=== PATIENT | female | born 1960 | race Caucasian/White ===

== ENCOUNTER 2017-03-25 05:19 | Emergency (ER) | payer OTHER, SELFPAY ==
[2017-03-25 05:21] VITALS: BP 122/68; PULSE 69; RESP 16; TEMP 36.4; O2SAT 98; BMI 34.0
--- NOTE | 2017-03-25 05:36 | ED.VISSUMM ---
- ER Visit Summary Date of Service: 03/25/17 Chief Complaint: Back pain History of Present Illness: The patient is a 56 F with severe right low back pain radiating into her right lower extremity. Does not go below the knee but occasionally feels some tingling in her toes. Pain started about 2 days ago, she had been doing a lot of repetitive lifting emptying a cooler involving lots of boxes, she felt a twinge at that point but it was not severe and she kept working. As that day and yesterday went on, the pain became more prominent, she found herself having a hard time getting out of a seated position because of pain. She denies any weakness, no bowel or bladder dysfunction, however tonight she was having too much pain and was not able to get up she called EMS to bring her to the hospital. She has had this happen before with these exact same symptoms in the same distribution. Last time she took some medication was some generic Tylenol yesterday. No abdominal pain, presyncope, direct trauma to her back. Physical Examination: Vital signs are normal. She is tearful, but in no distress. Back is tender in the right lumbosacral paraspinal area without a rash. She has increased low back pain with some muscle spasm when I perform the ipsilateral straight leg raise, however she has no radicular symptoms and cross straight leg raise is negative. She is neurovascularly intact distally with normal reflexes and neurologic exam. Test Results: n/a Emergency Department Course and Treatment: No particular red flags that indicate further emergency studies are indicated. She was treated symptomatically with Norflex, Toradol, morphine, and a dose of oral Zofran to prevent vomiting. On reevaluation, she is feeling much better, she was able to sit on the edge of the bed, get out of bed on her own, and ambulate with little difficulty. She wants no prescriptions. We discussed the possibility of SI joint dysfunction, given the location of her pain and tenderness, and discussing with her doctor about physical therapy or chiropractor evaluation, as she was asking for ways to prevent this from happening again. Treatment Plan: Supportive Disposition: Discharge home Impression: Acute lumbosacral myofascial strain Sacroiliitis This note was generated with [employer] ([employer]) dictation software. It may contain incorrect words, spelling, and punctuation that were not noted in review of the chart prior to signing ED Disposition - Plan for ED Patient: Disposition: Home or Assisted Living Chief Complaint: Back Instructions: ED Sprain Strain Lumbar, ED Sacroiliitis, Anatomy of the Sacroiliac Joint Referrals: Doctor,Your [STAFF PHYSICIAN] - 1 Week if not improving
[2017-03-25] MEDS: Ketorolac 30 MG/ML Syringe IM (05:43)
[2017-03-25] MEDS: Ondansetron ODT 4 MG Tablet 8 MG PO (05:43)
[2017-03-25] MEDS: Orphenadrine 60 MG/2 ML Ampul IM (05:43)
[2017-03-25 06:57] VITALS: BP 131/78; PULSE 78; RESP 18; O2SAT 98
== END 2017-03-25 06:58 | disposition home or self-care (01) ==
PROVIDERS: Emergency Provider Emergency Medicine
DX: M46.1 Sacroiliitis, not elsewhere classified (principal); S39.012A Strain of muscle, fascia and tendon of lower back, initial encounter; X50.9XXA Other and unspecified overexertion or strenuous movements or postures, initial encounter; Y93.9 Activity, unspecified; Y92.9 Unspecified place or not applicable; Y99.9 Unspecified external cause status; E66.9 Obesity, unspecified
CPT/HCPCS: 96372; 99284

== ENCOUNTER 2022-10-07 12:38 | Emergency (ER) | payer MEDICAID, SELFPAY ==
[2022-10-07 12:38] VITALS: BP 116/71; PULSE 92; RESP 20; TEMP 36.2; O2SAT 97; BMI 30.1
--- NOTE | 2022-10-07 13:24 | CT_ITS ---
STUDY: CT ABDOMEN AND PELVIS WITHOUT CONTRAST REASON FOR EXAM: Female, 62 years old. Right lower quadrant pain and nausea. RADIATION DOSAGE (If Supplied By Facility): CTDIvol = ( 12.08 ) mGy, DLP = ( 579.67 ) mGycm TECHNIQUE: Transaxial images were obtained from the dome of the diaphragm to the symphysis pubis without oral contrast, and without intravenous contrast. Sagittal and coronal images were reconstructed. Individualized dose optimization techniques were used for this CT. COMPARISON: None. FINDINGS: The visualized lung bases are unremarkable. Mild coronary artery calcification. Normal liver. Normal gallbladder and extrahepatic biliary system. Normal spleen. Normal pancreas. Normal bilateral adrenal glands. Normal right kidney. Normal left kidney. Normal visualized stomach. Normal small intestine. There are scattered colonic diverticula consistent with diverticulosis. There is non-visualization of the appendix. There is scattered atherosclerotic calcification of the abdominal aorta, without a demonstrated aneurysm. Normal inferior vena cava. Normal retroperitoneum. Normal urinary bladder. Normal abdominal wall. There are mild degenerative changes of the visualized lumbar spine. CT/Abdomen/Pelvis without Cont IMPRESSION: Scattered sigmoid diverticula. Status post hysterectomy. Electronically Signed: Terrence Coulter MD at 14:08 EDT ,
--- NOTE | 2022-10-07 13:25 | ED.VIS.GI ---
HPI HPI - GI History of Present Illness Chief Complaint: Abd Pain Abdominal Pain/Flank Pain Onset: Today and Hours (2) Context: Sudden Onset Timing: Continuous Quality: Sharp Location: RLQ Worsened by: Nothing Relieved by: Remaining Still Nausea/Vomiting/Emesis GI Symptom: Positive for Nausea; Negative for Vomiting Diarrhea/Melena/Hematochezia GI Symptom: Negative for Diarrhea, Melena or Hematochezia Associated Symptoms Associated Symptoms: Negative for Dysuria, Frequency or Hematuria Narrative Narrative: Patient presents with abdominal pain that began approximately 2 hours prior to arrival. Patient states pain began on the right lower abdomen. Patient describes it as sharp. Patient states it has been constant. Patient states she was doing a lot of moving when the pain began. Patient states that since she has been in the emergency department she has been sitting in the bed and her pain has improved. Patient admits to some nausea but denies any vomiting. Patient denies any diarrhea, melena, or hematochezia. Patient denies any dysuria, hematuria, or frequency. Patient states she was feeling a little lightheaded when the pain began. [facility] Medical History (Updated 10/07/22 @ 14:[address] Khoi Gonsalez DO) Chronic anxiety Tobacco abuse disorder Medical History no medical history no medical history Home Medications multivitamin (Multiple Vitamins tablet) 1 ea PO DAILY 03/25/17 [History Last Taken Unknown] Allergy/AdvReac Type Severity Reaction Status Date / Time No Known Allergies Allergy Verified 10/07/22 12:40 Surgical History (Updated 10/07/22 @ 13:[address] Khoi Gonsalez DO) History of hysterectomy Hx of tonsillectomy Social History Smoking Status: Current every day smoker tobacco type: cigarettes ROS ROS ED Constitutional Constitutional ED: Denies chills or fever(s) Eyes Eyes: Denies blurry vision or change in vision ENT ENT ED: Denies rhinorrhea or sore throat Cardiovascular Cardiovascular: Denies chest pain or palpitations Respiratory/Chest Respiratory/Chest: Denies cough or dyspnea Gastrointestinal Gastrointestinal: Reports abdominal pain and nausea; Denies vomiting Genitourinary Genitourinary ED: Denies dysuria or hematuria Musculoskeletal Musculoskeletal: Reports back pain; Denies neck pain Integumentary Denies abscess or rash Neurologic Neurologic: Denies headache(s) or weakness Allergic/Immunologic Allergic/Immunologic ED: Denies mouth swelling or urticaria EXAM Physical Exam Const Vital Signs: 10/07/22 12:38 Temperature 97.2 F L Temperature Source Temporal Pulse Rate 92 Respiratory Rate 20 H Blood Pressure 116/71 Blood Pressure Mean 86 Pulse Ox 97 Oxygen Delivery Method Room Air Positive well nourished and well developed General Appearance ED: well developed and NAD HEENT Reports moist mucous membranes Neck supple and no JVD Resp normal respiratory effort and clear to auscultation bilaterally Cardio regular rate and regular rhythm GI normal to inspection, nondistended, normoactive bowel sounds Palpation: soft and tender RLQ, McBurney's point, Obturator sign (Negative) and Rovsing's sign (Negative); Negative for guarding or rebound tenderness present Extremity normal to inspection General Extremety ED: Negative for edema or tenderness General Extremity: Negative for edema Neuro oriented x3, CN's II-XII intact bilaterally and no sensory deficits noted Sensorium / Orientation: alert Motor Exam: strength 5/5 throughout Psych mental status grossly normal Skin no rashes or lesions noted MDM MDM MDM Narrative Medical decision making narrative: Differential diagnosis includes ureteral calculus, pyelonephritis, appendicitis, urinary tract infection, colitis, and mesenteric adenitis. CBC will be obtained to assess for leukocytosis and anemia. Comprehensive metabolic profile will be obtained to assess for electrolyte abnormality, renal function, and hepatic function. Urinalysis will be obtained to assess for urinary tract infection and hematuria. CT scan of the abdomen pelvis will be obtained to assess for appendicitis, ureteral calculus, and mesenteric adenitis. Lab Data Attestation: I reviewed the patient's lab results. Lab results narrative: CBC was reviewed and was within normal limits. Comprehensive metabolic profile was reviewed and was within normal limits. Urinalysis was reviewed. There is no evidence of urinary tract infection or hematuria. Labs: Laboratory Results - last 24 hr 10/07/22 10/07/22 13:38 13:45 WBC 8.4 RBC 3.97 L Hgb 13.6 Hct 39.6 MCV 99.7 H MCH 34.3 H MCHC 34.3 RDW Std Deviation 48.1 H RDW Coeff of Emmy 13.0 Plt Count 362 MPV 8.8 Immature Gran % (Auto) 0.100 Neut % (Auto) 63.3 Lymph % (Auto) 28.5 Stanley % (Auto) 5.3 Eos % (Auto) 2.3 Baso % (Auto) 0.5 Absolute Neuts (auto) 5.3 Absolute Lymphs (auto) 2.39 Nucleated RBC % 0 Sodium 138 Potassium 4.0 Chloride 109 H Carbon Dioxide 24.0 Anion Gap 5 BUN 20 H Creatinine 0.95 Estim Creat Clear Calc 54.38 Est GFR (MDRD) Af Amer 77 Est GFR (MDRD) Non-Af 64 BUN/Creatinine Ratio 21.0 H Glucose 90 Calcium 9.1 Total Bilirubin 0.30 AST 16 ALT 23 Alkaline Phosphatase 88 Total Protein 7.4 Albumin 3.7 Globulin 3.7 Albumin/Globulin Ratio 1.0 Urine Color Yellow Urine Clarity Clear Urine pH 6.0 Ur Specific [place] 1.025 Urine Protein 15 H Urine Glucose (UA) Normal Urine Ketones 5 H Urine Occult Blood 150 H Urine Nitrite Negative Urine Bilirubin Negative Urine Urobilinogen Normal Ur Leukocyte Esterase 100 H Urine RBC 0-5 SEEN Urine WBC 0-5 SEEN Ur Squamous Epith Cells 0-5 SEEN Urine Bacteria RARE Urine Mucus 1+ Radiography Diagnostic Testing: Clinical Impression(s) from Imaging Studies Abdomen/Pelvis CT 10/07/22 13:24 IMPRESSION: Scattered sigmoid diverticula. Status post hysterectomy. Electronically Signed: Terrence Coulter MD at 14:08 EDT , CT scan of the abdomen pelvis was obtained. There are scattered sigmoid diverticula. There is no evidence of diverticulitis. There is no ureteral calculus noted. The appendix was not visualized. There is no free air or free fluid. This was interpreted by the radiologist and was also independently reviewed by myself. Treatment and Re-Evaluation :: Patient was given IV fluids, morphine, and Zofran. Smoking cessation was discussed. Patient was feeling better on reevaluation. Patient was advised of her findings. Patient was advised that the appendix was not visualized on CT scan but that there were no inflammatory changes in the right lower abdomen consistent with appendicitis. Patient was instructed to follow-up with her primary care physician in 3 to 5 days for reevaluation. Patient was instructed to return if worse in any way. Patient understood and was agreeable with the plan. All questions were answered. Discharge Plan Triage Chief Complaint: Abd Pain ED Provider: Khoi Gonsalez Dx/Rx/DC Orders Clinical Impression: Right lower quadrant abdominal pain, Tobacco abuse disorder Instructions: ED Abdominal Pain Unkn Cause Fem Prescriptions: No Action multivitamin [Multiple Vitamins] 1 EACH tablet 1 ea PO DAILY Primary Care Provider: Care Physician,No Primary Referrals: Lorena Hart MD [[facility]] - 3-5 Days Care Physician,No Primary [Primary Care Provider] - Disposition Disposition: Home, Self Care
[2022-10-07] MEDS: 0.9% Normal Saline 1,000 ML 1000 ML IV (13:38)
[2022-10-07] MEDS: Ondansetron 4 MG/2 ML Vial IV (13:38)
[2022-10-07] MEDS: Morphine 4 MG/ML Syringe IV (13:38)
[2022-10-07 13:47] LABS: Color, Urine Yellow (Yellow); Glucose, Dipstick Normal (Normal); Ketone-Dipstick 5 mg/dl (Negative); Leukocyte Esterase-Dipstick 100 /ul (Negative); Nitrite-Dipstick Negative (Negative); Occult Blood-Urine 150 /ul (Negative); Protein-Dipstick 15 mg/dl (Negative); Specific Gravity, Urine 1.025 (1.002-1.030); Urine Bilirubin Dipstick Negative (Negative); Urine Clarity Clear (Clear); Urine Urobilinogen Normal (Normal)
[2022-10-07 13:52] LABS: Absolute Lymphocyte Count 2.39 X10^3/uL (0.83-4.51); Absolute Neutrophil Count 5.3 X10^3/uL (2.0-7.7); Basophil# 0.04 X10^3/uL; Basophil% 0.5 % (0-1); Eosinophil# 0.19 X10^3/uL; Eosinophils% 2.3 % (0-5); Hematocrit 39.6 % (37-47); Hemoglobin 13.6 g/dL (12.0-15.0); Lymphocyte # 2.39 X10^3/ul (0.83-4.51); Lymphocyte % 28.5 % (19-41); Mean Corp Hgb Conc 34.3 g/dL (32-36); Mean Corpuscular Hgb 34.3 pg (27.0-32.0); Mean Corpuscular Volume 99.7 fL (81-99); Mean Platelet Vol. 8.8 fl (6.2-12.0); Monocyte# 0.44 X10^3/uL; Monocyte% 5.3 % (0-10); NRBC Flagged by Analyzer 0 % (0-5); Neutrophil # 5.31 X10^3/uL (2.7-7.7); Neutrophil % 63.3 % (47-70); Platelet Count 362 K/mm3 (150-450); RBC Distribution Width SD 48.1 fl (35.1-43.9); Red Blood Count 3.97 M/mm3 (4.2-5.4); White Blood Count 8.4 K/mm3 (4.4-11.0)
[2022-10-07 14:02] LABS: Bacteria RARE /hpf (None Seen); Mucous, Urine 1+ /hpf (<or=2+); Red Blood Cells-Urine 0-5 SEEN /hpf (0-5); Squamous Epithelial Cells - UA 0-5 SEEN /hpf (5-10); White Blood Cells 0-5 SEEN /hpf (0-5)
[2022-10-07 14:10] LABS: AST(SGOT) 16 U/L (15-37); Alanine Aminotransfer ALT/SGPT 23 U/L (13-56); Albumin, Serum 3.7 g/dL (3.2-5.0); Alkaline Phosphatase 88 U/L (45-117); Anion Gap 5 (5-15); BUN 20 mg/dL (7-18); Calcium,Total 9.1 mg/dL (8.5-10.1); Chloride 109 mmol/L (98-107); Creatinine, Serum 0.95 mg/dL (0.55-1.02); EST Glomerular Filtration Rate 64 mL/min (>60); Est Glom Filt Rate - Afr Amer 77 mL/min (>60); Estimated Creatinine Clearance 54.38 ml/min; Globulin 3.7 g/dL (2.2-4.2); Glucose 90 mg/dL (74-106); Protein, Total 7.4 g/dL (6.4-8.2); Sodium Level 138 mmol/L (136-145)
[2022-10-07 15:02] VITALS: BP 120/74; PULSE 90; RESP 18; O2SAT 99
== END 2022-10-07 15:03 | disposition home or self-care (01) ==
PROVIDERS: Emergency Provider Emergency Medicine; Visit Provider Emergency Medicine
DX: R10.31 Right lower quadrant pain (principal); R11.2 Nausea with vomiting, unspecified; F17.210 Nicotine dependence, cigarettes, uncomplicated
CPT/HCPCS: 74176; 80053; 81001; 85025; 96361; 96374; 96375; 99282; J7030; A4216; J2405

== ENCOUNTER 2025-01-18 11:03 | Emergency (ER) | payer SELFPAY ==
[2025-01-18] VITALS (10 sets, daily range): BP systolic 111–130; BP diastolic 67–78; PULSE 77–91; RESP 16–26; TEMP 36.6–36.8; O2SAT 95–99; BMI 33.7
--- NOTE | 2025-01-18 11:47 | EKG12_ITS ---
Test Reason : CHEST PRESSURE Blood Pressure : */* mmHG Vent. Rate : 80 BPM Atrial Rate : 80 BPM P-R Int : 148 ms QRS Dur : 84 ms QT Int : 378 ms P-R-T Axes : 57 57 56 degrees QTcB Int : 435 ms Normal sinus rhythm Normal ECG Confirmed by SAMEERA ANGEL, CHUCKIE ([id number]), film and video editor PHOENIX VELIZ ([id number]) on 01/24/2025 6:15:23 AM Referred By: Confirmed By: CHUCKIE BRASHER MD
--- NOTE | 2025-01-18 11:48 | ED.VIS.CHEST ---
HPI History of Present Illness Chief Complaint: Lower Extremity Injury Detail of Chief Complaint: Atypical chest pressure yesterday Informant: patient Onset/Context/Timing Onset: Yesterday and Month(s) (Bilateral hip pain for months. No trauma.) Activity at onset: gradual Timing: Continuous Quality: Positive for Dull and Heaviness (Yesterday. Resolved after 3 to 4 hours.) Current Severity: Gone Maximum Severity: Mild Relieved By: Nothing Associated Symptoms: Positive for Cough; Negative for Nausea, Vomiting, Diaphoresis, Dyspnea, Fever, Lightheadedness, Acid Reflux or Palpitations Narrative Narrative: 64-year-old female no [facility] past medical history does not have a primary care physician. Smoker. No cardiac history. She has multiple issues she presents with today yesterday while working in the kitchen she developed chest this comfort which she describes as a pressure across her chest. Lasted 3 to 4 hours now is gone. No cardiac history. Also bolus she had some palpitations. No history of dysrhythmia. No history of DVT or PE or risk factors. No recent travel surgery mobilization. He is also complaining of bilateral hip pain without fall or trauma has been ongoing for months worse with walking. Prior Similar Symptoms: Yes Recent Illness/Hospitalization: No CVD Risk Factors: Negative for Hypertension, Diabetes or Hypercholesterolemia PE Risk Factors: Negative for Recent Travel/Surgery, Recent Immobilization, Prior DVT or PE, Cancer or OCP + Smoking + >/=35 TAD Risk Factors: Negative for Marfan's Syndrome [facility] Medical History Chronic anxiety Tobacco abuse disorder Home Medications ?Medication ?Instructions ?Recorded ?Last Taken ?Type acetaminophen 500 mg tablet 500 mg PO Q6H PRN fever or pain 01/18/25 01/17/25 History (Tylenol Extra Strength) ibuprofen 200 mg tablet (IBU-200) 200 mg PO Q8H 01/18/25 01/17/25 History Allergy/AdvReac Type Severity Reaction Status Date / Time No Known Allergies Allergy Verified 01/18/25 11:08 Surgical History Hx of tonsillectomy History of hysterectomy Social History housing: house Smoking Status: Current every day smoker tobacco type: cigarettes ROS ROS ED ROS Narrative Chronic cough. Atypical nonexertional chest pain yesterday. Bilateral hip pain without trauma. For months. Constitutional Constitutional ED: Denies chills or fever(s) Eyes Eyes: Reports none ENT ENT ED: Denies ear pain Cardiovascular Cardiovascular: Reports as per HPI, chest pain and palpitations Respiratory/Chest Respiratory/Chest: Reports cough Gastrointestinal Gastrointestinal: Denies abdominal pain Genitourinary Genitourinary ED: Denies dysuria or hematuria Musculoskeletal Musculoskeletal: Denies arthralgias Integumentary Denies abscess or Abrasions Psychiatric Psychiatric: Denies depression Endocrine Endocrinology: Denies cold intolerance Hematologic/Lymphatic Hematologic/Lymphatic: Denies easy bleeding, easy bruising or lymphadenopathy Allergic/Immunologic Allergic/Immunologic ED: Denies mouth swelling, tongue swelling or urticaria EXAM Physical Exam Narrative Exam Narrative: 64-year-old female sitting upright in bed no acute distress vital signs stable afebrile. Pulse ox 85% room air no hypoxia. H EENT exam pupils round react to light. Moist mucous membranes. Neck nontender no JVD. No lymphadenopathy. Back nontender. Lungs few scattered expiratory wheezes no rales or rhonchi. Equal symmetrical. Heart regular rate and rhythm rate about 85 no murmur. Chest wall and ribs nontender no ecchymosis or bruising. No subcu air or crepitance. Abdomen soft nontender normal bowel sounds without peritoneal signs. No distention. Pelvic girdle intact. Moving all 4 extremities. Normal water server strength. Normal dorsi plantarflexion. Equal symmetrical radial pulses. Calves are nontender without edema or cords. Neurologically she is awake alert. Answering questions following commands. No focal motor deficits. Const Vital Signs: 01/18/25 11:05 01/18/25 11:08 01/18/25 11:08 Temperature 98.3 F 98.1 F Temperature Source Oral Oral Pulse Rate 91 84 Respiratory Rate 18 26 H Respiratory Effort Normal Non-Labored Respiratory Pattern Blood Pressure 123/78 H 111/72 Blood Pressure Mean 93 85 Pulse Ox 95 96 Oxygen Delivery Method Room Air Room Air 01/18/25 11:08 01/18/25 11:44 01/18/25 11:53 Temperature Temperature Source Pulse Rate 77 Respiratory Rate Respiratory Effort Normal Non-Labored Respiratory Pattern Normal Blood Pressure 123/67 H Blood Pressure Mean 85 Pulse Ox 98 95 Oxygen Delivery Method Room Air 01/18/25 12:08 01/18/25 13:00 01/18/25 14:00 Temperature 98.1 F Temperature Source Oral Pulse Rate 81 78 Respiratory Rate 16 16 Respiratory Effort Respiratory Pattern Blood Pressure 124/74 H 117/67 123/67 H Blood Pressure Mean 90 83 85 Pulse Ox 99 98 Oxygen Delivery Method Room Air 01/18/25 14:32 Temperature Temperature Source Pulse Rate 80 Respiratory Rate Respiratory Effort Respiratory Pattern Blood Pressure 117/74 Blood Pressure Mean 88 Pulse Ox 97 Oxygen Delivery Method MDM MDM MDM Narrative Medical decision making narrative: 64-year-old female with atypical chest discomfort yesterday. No cardiac history. Also history of palpitations. She undergo cardiac workup. Currently her exam is benign. She also complaining of bilateral hip pain for months most likely arthritis and x-ray will be obtained. Repeat exam patient doing well around 3:03 PM. We went over her test results And x-rays. Repeat exam unchanged and unremarkable. Patient be discharged home with outpatient follow-up. History & Record Review Discussion w/independent historian: Patient Additional record(s) reviewed:: Prior outpatient record and Prior labs Lab Data Attestation: I reviewed the patient's lab results. Lab results narrative: CBC shows a white count of 4 H&H of 14 and 43. Platelets 390 Electrolytes show a gap of 13. Normal BUN of 11 creatinine 0.6. Glucose 88. Initial troponin 10. 2-hour troponin less than 6. Chest x-ray unremarkable. Pelvis and hips unremarkable. Labs: Laboratory Results - last 24 hr 01/18/25 01/18/25 11:20 13:25 WBC 4.7 RBC 4.52 Hgb 14.5 Hct 43.6 MCV 96.5 MCH 32.1 H MCHC 33.3 RDW Std Deviation 50.4 H RDW Coeff of Emmy 14.0 Plt Count 390 MPV 9.4 Immature Gran % (Auto) 0.200 Neut % (Auto) 37.5 L Lymph % (Auto) 46.2 H [place] % (Auto) 12.0 H Eos % (Auto) 3.0 Baso % (Auto) 1.1 H Absolute Neuts (auto) 1.7 L Absolute Lymphs (auto) 2.15 Nucleated RBC % 0 Sodium 137 Potassium 4.2 Chloride 102 Carbon Dioxide 21.4 Anion Gap 13 BUN 11 Creatinine 0.66 L Estim Creat Clear Calc 95.53 Est GFR (MDRD) Non-Af 99 BUN/Creatinine Ratio 16.6 Glucose 88 Calcium 9.5 Troponin T High Sens 10 Troponin T Hi Sens 2 Hr < 6 Radiography Chest X-Ray - ED: 2 View, Read by ED Physician, Read by Radiologist, Normal, Heart, Lungs, Mediastinum, Bony Structures, No Acute Disease and Chronic Changes Diagnostic Testing: Clinical Impression(s) from Imaging Studies Chest X-Ray 01/18/25 11:50 IMPRESSION: No acute cardiopulmonary process Reading Location: [facility] Pelvis X-Ray 01/18/25 11:50 IMPRESSION: Mild degree of joint space narrowing of both hip joints. Reading Location: [place] [id number] Chest x-ray, 2 views, AP and lateral, interpreted by myself and radiologist shows no acute abnormality. No infiltrate. Pelvis x-ray of bilateral hips no acute abnormality mild chronic changes. Single view interpreted by myself and the radiologist. Rhythm Strip Rhythm Strip: Sinus Rhythm Rate: 80 Ectopy: None EKG Initial EKG: Attestation: I personally reviewed and interpreted this EKG as follows: Interpretation: Sinus Rhythm and No Acute Injury Pattern Comments: Normal sinus rhythm rate 80 no acute signs of CO or ischemia. No [id number]. Prior EKG tracings: not available for review Discharge Plan Triage Chief Complaint: Lower Extremity Injury Other Complaint: General Illness Palpitations ED Provider: Tarun Maynard Dx/Rx/DC Orders Clinical Impression: Chest pain of uncertain etiology, Acute hip pain, Osteoarthritis Instructions: ED Chest Pain, Uncertain Cause, ED Osteoarthritis Prescriptions: No Action acetaminophen [Tylenol Extra Strength] 500 mg tablet 500 mg PO Q6H PRN (Reason: fever or pain) ibuprofen [IBU-200] 200 mg tablet 200 mg PO Q8H Primary Care Provider: Care Physician,No Primary Referrals: Care Physician,No Primary [Primary Care Provider, Medical] Vivek Rowe MD [[facility], [facility]] - As soon as possible Activity Restrictions/Additional Instructions: Your cardiac workup was normal. Your labs look good. Your hip x-rays show mild arthritis but otherwise look pretty good. Motrin and Tylenol for pain. Follow-up with a local primary care provider. Print Language: Jamaican Disposition Disposition: Home, Self Care
--- NOTE | 2025-01-18 11:50 | RAD_ITS ---
PROCEDURE: PELVIS 1 OR 2 VIEWS 01/18/2025 REASON FOR EXAM: BILATERAL ATRAUMATIC HIP PAIN. TECHNIQUE: Procedure Code: RADPEL Modality: DX Procedure: PELVIS 1 OR 2 VIEWS COMPARISON: None FINDINGS: Hardware: None Bones: No fracture is seen. Joints: Mild degree of joint space narrowing of both hip joints. soft tissues: Soft tissues are unremarkable. Other: RAD/Pelvis 1 or 2 Views IMPRESSION: Mild degree of joint space narrowing of both hip joints. Reading Location: [facility]-
--- NOTE | 2025-01-18 11:50 | RAD_ITS ---
PROCEDURE: CHEST PA AND LATERAL 01/18/2025 REASON FOR EXAM: CHEST PAIN TECHNIQUE: Procedure Code: RADCXR Modality: DX Procedure: CHEST PA AND LATERAL COMPARISON: None FINDINGS: Hardware: EKG leads Heart: The heart size is normal. Mediastinum: The mediastinal contour is unremarkable. Lungs: The lungs are clear. Bones: Degenerative changes are identified within the thoracic spine. RAD/Chest PA and Lateral IMPRESSION: No acute cardiopulmonary process Reading Location: [id number]
[2025-01-18 11:57] LABS: Hematocrit 43.6 % (37-47); Hemoglobin 14.5 g/dL (12.0-15.0); Immature Granulocytes Count 0.010 X10^3/uL (0.0-0.0); Mean Corp Hgb Conc 33.3 g/dL (32-36); Mean Corpuscular Volume 96.5 fL (81-99); Mean Platelet Vol. 9.4 fl (6.2-12.0); NRBC Flagged by Analyzer 0 % (0-5); Platelet Count 390 K/mm3 (150-450); RBC Distribution Width CV 14.0 % (11.6-14.6); RBC Distribution Width SD 50.4 fl (35.1-43.9); Red Blood Count 4.52 M/mm3 (4.2-5.4); White Blood Count 4.7 K/mm3 (4.4-11.0)
[2025-01-18 12:25] LABS: Anion Gap 13 (5-15); BUN 11 mg/dL (4-19); BUN/Creat Ratio 16.6 RATIO (10-20); Calcium,Total 9.5 mg/dL (7.6-11.0); Carbon Dioxide 21.4 mmol/L (21.0-32.0); Chloride 102 mmol/L (98-108); Estimated Creatinine Clearance 95.53 ml/min (50-250); Glucose 88 mg/dL (70-99); Potassium 4.2 mmol/L (3.3-5.1); Troponin T High Sensitivity 10 ng/L (<=14)
[2025-01-18 13:59] LABS: Troponin T High Sens 2 HR < 6 ng/L (<=14)
--- NOTE | 2025-01-18 21:16 | CM.ED ---
Social Work Reason for visit: No PCP Patient verified that she does not currently have a PCP. [facility] provider list and Dont Wait brochure given to patient. Patient had also expressed to registration prior to SW visit that she was having trouble applying for Medicaid. SW contacted Radha from [employer] to meet with patient. During visit, patient stated that she was over resource for Medicaid but Radha had helped her with other financial assistance. Patient also expressed having depression and a willingness to seek counseling. Patient was provided information regarding counseling services in [facility]. No further needs at this time. Fidelina Manzo, TIRE MOLD ENGRAVER, CRISIS NURSE
== END 2025-01-18 15:17 | disposition home or self-care (01) ==
PROVIDERS: Emergency Provider Emergency Medicine; Visit Provider Emergency Medicine
DX: R07.89 Other chest pain (principal); F17.210 Nicotine dependence, cigarettes, uncomplicated; Z90.710 Acquired absence of both cervix and uterus; M25.551 Pain in right hip; M25.552 Pain in left hip; R05.9 Cough, unspecified
CPT/HCPCS: 71046; 72170; 80048; 84484; 85025; 93005; 99285; A4216